=== PATIENT | male | born 1980 | race Two or more races ===

== ENCOUNTER 2023-12-10 15:22 | Emergency (ER) | payer OTHER, SELFPAY ==
--- NOTE | ~2023-12-10 | XR_ITS ---
EXAMINATION: XR CHEST CLINICAL INFORMATION: Chest pain COMPARISON: Previous chest x-ray from 2014 TECHNIQUE: 2 views of the chest were obtained. FINDINGS: The cardiac and mediastinal contours are normal. There is a left clavian dual chamber pacemaker with the right atrium and right ventricle. The lungs are clear. No pleural effusion or pneumothorax. Bony structures are unremarkable. XR/XR chest 2V IMPRESSION: Unremarkable examination.
--- NOTE | 2023-12-10 15:22 | ECG_ITS ---
Test Reason : CHEST PAIN Blood Pressure : / mmHG Vent. Rate : 088 BPM Atrial Rate : 088 BPM P-R Int : 168 ms QRS Dur : 088 ms QT Int : 338 ms P-R-T Axes : 019 005 019 degrees QTc Int : 408 ms Atrial-paced rhythm Abnormal ECG No previous ECGs available Referred By: Lindsey Velazquez Electronically Signed By:Edson Snider
[2023-12-10 15:30] VITALS: BP 134/88; PULSE 80; RESP 16; TEMP 36.4; O2SAT 95; BMI 36.1
--- NOTE | 2023-12-10 15:35 | ED_ITS ---
HPI - General Adult General Chief complaint: Chest Pain Stated complaint: chest pain, pacemaker, L arm pain Time Seen by Provider: 12/10/23 19:52 Related Data Allergies Allergy/AdvReac Type Severity Reaction Status Date / Time No Known Allergies Allergy Verified 12/10/23 15:22 [facility] Past Medical History Medical History Pacemaker Bradycardia Social History Social History Advance Directives: No Advance Directives Information Provided: No Physical Exam ED Vital Signs: Vital Signs - 24 hr 12/10/23 19:59 12/10/23 20:57 Temperature 98.0 F 98.4 F Pulse Rate 62 71 Respiratory Rate 16 16 Blood Pressure 129/77 128/72 Pulse Oximetry 97 97 Oxygen Delivery Method Room Air Room Air BMI result Body Mass Index 36.1 Course Course Course Narrative: RME performed by Lindsey Velazquez PA-C. Patient is a 43 year old assigned male at presenting to the emergency department with chest pain and left arm numbness starting this morning. Patient states that he has a pacemaker. Detailed physical exam and review of systems are deferred to the bi manager. Labs, imaging, and swabs ordered. Patient placed back in the waiting room pending room availability and results. Patient seen and dispositioned by Dr. Bravo. Please refer to her note from same visit date. Medical Decision Making Lab Data 12/10/23 16:02 12/10/23 16:02 Labs: Lab Results 12/10/23 12/10/23 Range/Units 16:02 18:59 WBC 7.9 (4.8-10.8) X10*3/uL RBC 4.81 (4.60-5.80) X10*6/uL Hgb 13.9 L (14.0-18.0) g/dl Hct 43.3 (42.0-52.0) % MCV 90.0 (80.0-98.0) fL MCH 28.9 (27.0-33.0) pg MCHC 32.1 (31.0-36.0) g/dl RDW 12.8 (11.0-16.0) % Plt Count 304 (160-400) X10*3/uL MPV 9.0 L (9.4-12.4) fL Immature Gran % (Auto) 0.3 (0.0-0.4) % Neut % (Auto) 56.8 (45-73) % Lymph % (Auto) 31.4 (20-40) % [place] % (Auto) 7.5 (2-11) % Eos % (Auto) 3.5 (0-4) % Baso % (Auto) 0.5 (0-2) % Lymph # (Auto) 2.5 (1.2-4.9) X10*3/uL [place] # (Auto) 0.6 (0.1-1.2) X10*3/uL Eos # (Auto) 0.3 (0.0-0.4) X10*3/uL Baso # (Auto) 0.0 (0.0-0.2) X10*3/uL Abs Immat Gran (auto) 0.02 (0.00-0.03) X10*3/uL Absolute Neuts (auto) 4.5 (2.0-8.3) x10*3/uL Absolute Nucleated RBC 0.000 (0.0-0.012) X10*3/uL Nucleated RBC % (auto) 0.0 (0.0-0.2) /100WBC PT 11.5 (11.1-13.3) SEC INR 0.9 (0.9-1.1) APTT 31.2 (26.0-36.8) SEC Sodium 139 (135-145) mmol/L Potassium 3.8 (3.3-5.1) mmol/L Chloride 105 (96-108) mmol/L Carbon Dioxide 28 (22-29) mmol/L Anion Gap 10 L (12-20) BUN 13 (9-16) mg/dL Creatinine 0.85 (0.5-1.4) mg/dL Estim Creat Clear Calc 118.3 Estimated GFR > 60 Random Glucose 123 H (60-115) mg/dL Calcium 9.9 (8.4-10.2) mg/dL Magnesium 2.1 (1.6-2.6) mg/dL Total Bilirubin 0.6 (0.0-1.0) mg/dL AST 35 (5-37) U/L ALT 62 H (0-40) U/L Alkaline Phosphatase 78 (39-117) U/L Troponin I High Sens < 2.7 < 2.7 (<3.5-35.0) ng/L Total Protein 7.3 (6.5-8.0) g/dL Albumin 4.3 (3.5-5.0) g/dL Influenza Type A (PCR) NEGATIVE (Negative) Influenza Type B (PCR) NEGATIVE (Negative) RSV RNA Qual (PCR) NEGATIVE (Negative) SARS-CoV-2 RNA (RT-PCR) NEGATIVE (Negative) Discharge Plan Discharge Clinical Impression: Atypical chest pain Patient Disposition: Home, Self-Care Instructions: Chest Pain (ED) Additional Instructions: Please follow-up with your primary care physician tomorrow. If you have any worsening or new symptoms, please return to the emergency room or call 911 Referrals: Edson Snider MD [Physician] - 12/13/23 Interventions: ED Discharge Assessment Last Done: 12/10/23 20:58 Discharge Date/Time: 12/10/23 20:59
[2023-12-10 16:10] LABS: MANUAL DIFF FLAG NO
[2023-12-10 16:12] LABS: Basophils Percent Auto 0.5 % (0-2); Eosinophils Absolute Auto 0.3 X10*3/uL (0.0-0.4); Eosinophils Percent Auto 3.5 % (0-4); Hematocrit 43.3 % (42.0-52.0); Hemoglobin 13.9 g/dl (14.0-18.0); Imm Gran Abs Auto 0.02 X10*3/uL (0.00-0.03); Imm Gran Pct Auto 0.3 % (0.0-0.4); Lymphocytes Absolute Auto 2.5 X10*3/uL (1.2-4.9); Lymphocytes Percent Auto 31.4 % (20-40); Mean Corpuscular HGB Conc 32.1 g/dl (31.0-36.0); Mean Corpuscular Hemoglobin 28.9 pg (27.0-33.0); Monocytes Absolute Auto 0.6 X10*3/uL (0.1-1.2); Monocytes Percent Auto 7.5 % (2-11); Neutrophils Absolute Auto 4.5 x10*3/uL (2.0-8.3); Neutrophils Percent Auto 56.8 % (45-73); Platelet Count 304 X10*3/uL (160-400); Red Blood Count 4.81 X10*6/uL (4.60-5.80); Red Cell Distribution Width 12.8 % (11.0-16.0); White Blood Count 7.9 X10*3/uL (4.8-10.8)
[2023-12-10 16:17] LABS: INTERNATIONAL NORM RATIO 0.9 (0.9-1.1); Prothrombin Time 11.5 SEC (11.1-13.3)
[2023-12-10 16:20] LABS: Partial Thromboplastin Time 31.2 SEC (26.0-36.8)
[2023-12-10 16:32] LABS: Alanine Aminotransferase 62 U/L (0-40); Albumin Level 4.3 g/dL (3.5-5.0); Alkaline Phosphatase 78 U/L (39-117); Anion Gap 10 (12-20); Aspartate Amino Transferase 35 U/L (5-37); Bilirubin Total 0.6 mg/dL (0.0-1.0); Blood Urea Nitrogen 13 mg/dL (9-16); Calcium 9.9 mg/dL (8.4-10.2); Carbon Dioxide 28 mmol/L (22-29); Chloride 105 mmol/L (96-108); Creatinine Clr Calc Pharmacy 118.3; Estimated Glomerular Filt Rate > 60; Glucose Random 123 mg/dL (60-115); Magnesium 2.1 mg/dL (1.6-2.6); Potassium 3.8 mmol/L (3.3-5.1); Sodium 139 mmol/L (135-145); Total Protein 7.3 g/dL (6.5-8.0)
[2023-12-10 16:40] LABS: Troponin-I High Sensitivity < 2.7 ng/L (<3.5-35.0)
[2023-12-10 16:52] LABS: Influenza A PCR NEGATIVE (Negative); Influenza B PCR NEGATIVE (Negative); Resp Syncy Virus RNA Qual PCR NEGATIVE (Negative); SARS COV2 PCR INHOUSE NEGATIVE (Negative)
[2023-12-10 19:28] LABS: Troponin-I High Sensitivity < 2.7 ng/L (<3.5-35.0)
[2023-12-10 19:59] VITALS: BP 129/77; PULSE 62; RESP 16; TEMP 36.7; O2SAT 97
[2023-12-10 20:01] VITALS: PULSE 62
--- NOTE | 2023-12-10 20:05 | ED.CHESTPAIN ---
HPI - Chest Pain General Chief Complaint: Chest Pain Stated Complaint: chest pain, pacemaker, L arm pain Time Seen by Provider: 12/10/23 19:52 Source: patient and family Mode of arrival: ambulatory Limitations: no limitations History of Present Illness HPI narrative: Patient comes to the emergency room complaining of chest pain for 12 hours. Patient states that he woke up with the pain and has been constant since then. Patient states that he has also shoulder pain and mild left arm pain. Patient states that if he touches the left side of his chest with his right hand hurts more. Patient denies shortness of breath. Patient known to have a pacemaker secondary to bradycardia. Patient denies any syncope or near syncopal episodes. Denies any abdominal pain, no history of trauma. 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 [place] Related Data Allergies Allergy/AdvReac Type Severity Reaction Status Date / Time No Known Allergies Allergy Verified 12/10/23 15:22 Review of Systems Review of Systems: Constitutional : No Weight loss, No Fever, No Chills, No Night Sweats, No Fatigue, No Malaise ENT/Mouth : No Hearing loss, No Ear Pain, No Nasal Congestion, No Sinus Pain, No Hoarseness, No sore throat, No Rhinorrhea, No Swallowing Difficulty Eyes: No Eye Pain, No Swelling, No Redness, No Foreign Body, No Discharge, No Vision Changes Cardiovascular : Complaining of constant left-sided Chest Pain for 12+ hours, No SOB, No Dyspnea on Exertion, No Orthopnea, No Edema, No Palpitations Respiratory : No Cough, No Sputum, No Wheezing, No Smoke Exposure, No Dyspnea Gastrointestinal : No Nausea, No Vomiting, No Diarrhea, No Constipation, No abdominal Pain, No Hematochezia, No Melena Genitourinary : no irregular bleeding, No Dysuria, No Urinary Frequency, No Hematuria, No Urinary Incontinence, No Urgency, No Flank Pain, No Urinary Flow Changes, No Hesitancy Musculoskeletal : No joint pain, No Myalgias, No Joint Swelling Skin : No Skin Lesions, No rash Neuro : No Weakness, No Numbness, No Paresthesias, No Loss of Consciousness, No Dizziness, No Headache Psych : No Anxiety/Panic, No Depression, No SI/HI/AH/VH, No Social Issues, Heme/Lymph: No Bruising, No Bleeding,No Lymphadenopathy Endocrine : No Polyuria, No Polydipsia, No Temperature Intolerance [facility] Past Medical History Medical History Pacemaker Bradycardia Physical Exam Vital Signs: Vital Signs: Last Vital Signs Temp 98.0 F 12/10/23 19:59 Pulse 62 12/10/23 19:59 Resp 16 12/10/23 19:59 BP 129/77 12/10/23 19:59 Pulse Ox 97 12/10/23 19:59 O2 Del Method Room Air 12/10/23 19:59 BMI result Body Mass Index 36.1 Const: Other: Appearance: Alert. Oriented X3. No acute distress. Eyes: Pupils equal, round and reactive to light. ENT: Pharynx normal. Neck: Normal inspection. Neck supple. No lymph nodes noted. No crepitus CVS: Normal heart rate and rhythm. Pulses normal. Normal S1 and S2, reproducible chest pain to palpation on the left side of the chest and left shoulder Respiratory: No respiratory distress. Breath sounds normal. No Wheezing. No rales Abdomen: Soft and nontender. No rigidity. No distention. Skin: Skin warm and dry. Normal skin color. Normal skin turgor. Extremities: No lower extremity edema. No Lacerations. No Rash Neuro: Oriented X 3. No motor deficit. No sensory deficit. Moving all extremities. No slurred speech. CN 2 through 12 grossly intact Psych: calm, cooperative, normal affect Medical Decision Making Medical Decision Making [facility] Narrative: Interpretation of labs: Normal hematology and chemistry, troponin x2 negative. -my interpretation of chest x-ray: No infiltrates, pacemaker present My interpretation of EKG: Atrial paced rhythm, heart rate 88, no ST segment depression or elevation, no T-wave inversion, QTC 408 -patient has reproducible chest pain on palpation, likely musculoskeletal pain. -discussed with the patient that we will give him the phone number for Cardiology so he can establish care with cardiac Differential Diagnosis Differential Diagnoses: The differential diagnosis associated with the presentation includes (ACS, NSTEMI, musculoskeletal chest pain, pleurisy) Admission/Observation Consideration of admission/observation: Escalation of care including admission/observation considered (Given patient's past medical history and symptoms, admission was considered) Lab Data [facility] Lab Attestation statement: I reviewed the patient's lab results. 12/10/23 16:02 12/10/23 16:02 Labs: Lab Results 12/10/23 12/10/23 Range/Units 16:02 18:59 WBC 7.9 (4.8-10.8) X10*3/uL RBC 4.81 (4.60-5.80) X10*6/uL Hgb 13.9 L (14.0-18.0) g/dl Hct 43.3 (42.0-52.0) % MCV 90.0 (80.0-98.0) fL MCH 28.9 (27.0-33.0) pg MCHC 32.1 (31.0-36.0) g/dl RDW 12.8 (11.0-16.0) % Plt Count 304 (160-400) X10*3/uL MPV 9.0 L (9.4-12.4) fL Immature Gran % (Auto) 0.3 (0.0-0.4) % Neut % (Auto) 56.8 (45-73) % Lymph % (Auto) 31.4 (20-40) % [place] % (Auto) 7.5 (2-11) % Eos % (Auto) 3.5 (0-4) % Baso % (Auto) 0.5 (0-2) % Lymph # (Auto) 2.5 (1.2-4.9) X10*3/uL [place] # (Auto) 0.6 (0.1-1.2) X10*3/uL Eos # (Auto) 0.3 (0.0-0.4) X10*3/uL Baso # (Auto) 0.0 (0.0-0.2) X10*3/uL Abs Immat Gran (auto) 0.02 (0.00-0.03) X10*3/uL Absolute Neuts (auto) 4.5 (2.0-8.3) x10*3/uL Absolute Nucleated RBC 0.000 (0.0-0.012) X10*3/uL Nucleated RBC % (auto) 0.0 (0.0-0.2) /100WBC PT 11.5 (11.1-13.3) SEC INR 0.9 (0.9-1.1) APTT 31.2 (26.0-36.8) SEC Sodium 139 (135-145) mmol/L Potassium 3.8 (3.3-5.1) mmol/L Chloride 105 (96-108) mmol/L Carbon Dioxide 28 (22-29) mmol/L Anion Gap 10 L (12-20) BUN 13 (9-16) mg/dL Creatinine 0.85 (0.5-1.4) mg/dL Estim Creat Clear Calc 118.3 Estimated GFR > 60 Random Glucose 123 H (60-115) mg/dL Calcium 9.9 (8.4-10.2) mg/dL Magnesium 2.1 (1.6-2.6) mg/dL Total Bilirubin 0.6 (0.0-1.0) mg/dL AST 35 (5-37) U/L ALT 62 H (0-40) U/L Alkaline Phosphatase 78 (39-117) U/L Troponin I High Sens < 2.7 < 2.7 (<3.5-35.0) ng/L Total Protein 7.3 (6.5-8.0) g/dL Albumin 4.3 (3.5-5.0) g/dL Influenza Type A (PCR) NEGATIVE (Negative) Influenza Type B (PCR) NEGATIVE (Negative) RSV RNA Qual (PCR) NEGATIVE (Negative) SARS-CoV-2 RNA (RT-PCR) NEGATIVE (Negative) Independent Interpretation I performed an independent interpretation of an: EKG and Plain X-Ray Radiology Impression Discussion of test interpretation with radiology: I have reviewed the radiologist's reading. Radiologist Impression: FINDINGS: The cardiac and mediastinal contours are normal. There is a left clavian dual chamber pacemaker with the right atrium and right ventricle. The lungs are clear. No pleural effusion or pneumothorax. Bony structures are unremarkable. XR/XR chest 2V IMPRESSION: Unremarkable examination. Critical Care Time Critical Care Time Critical Care Time: Yes Total Critical Care Time: 45 Attestation: I have personally provided critical care time. Time includes review of lab data, radiology results, discussion with consultants, and monitoring for potential decompensation. Intervention performed as documented. Discharge Plan Discharge Clinical Impression: Atypical chest pain Patient Disposition: Home, Self-Care Instructions: Chest Pain (ED) Additional Instructions: Please follow-up with your primary care physician tomorrow. If you have any worsening or new symptoms, please return to the emergency room or call 911 Referrals: Edson Snider MD [Physician] - 12/13/23
[2023-12-10 20:57] VITALS: BP 128/72; PULSE 71; RESP 16; TEMP 36.9; O2SAT 97
== END 2023-12-10 20:59 | disposition home or self-care (01) ==
PROVIDERS: Physician Assistant Medical; Emergency Provider Emergency Medicine; PCP Internal Medicine
DX: R07.89 Other chest pain (principal); Z95.0 Presence of cardiac pacemaker; Z11.52 Encounter for screening for COVID-19; Z20.828 Contact with and (suspected) exposure to other viral communicable diseases
CPT/HCPCS: 0241U; 36415; 71046; 80053; 83735; 84484; 85025; 85610; 85730; 93005; 99283; 99285

== ENCOUNTER → 2023-12-10 15:22 | Outpatient (BNV) | payer OTHER, SELFPAY | PROVIDERS: Emergency Provider Emergency Medicine; PCP Internal Medicine; Visit Provider Internal Medicine Cardiovascular Disease | DX: R94.31 Abnormal electrocardiogram [ECG] [EKG] (principal) | CPT/HCPCS: 93010 ==